=== PATIENT | female | born 1985 | race Caucasian/White ===

== ENCOUNTER 2017-08-11 17:01 | Emergency (ER) | payer MEDICAID ==
[~2017-08-11] VITALS: Ht 170.2 cm; Wt 53.6 kg
[2017-08-11 17:07] VITALS: BP 119/83
[2017-08-11] MEDS ORDERED: KETOROLAC 30 MG/1 ML IM ONE (18:00)
[2017-08-11] MEDS ORDERED: KETOROLAC 30 MG/1 ML ONE ×2 (18:09)
== END 2017-08-11 18:40 | disposition home or self-care (01) ==
LOC: ED 18:00
DX: S30.0XXA Contusion of lower back and pelvis, initial encounter (principal); X58.XXXA Exposure to other specified factors, initial encounter; Y93.89 Activity, other specified; Y92.89 Other specified places as the place of occurrence of the external cause; Y99.8 Other external cause status
CPT/HCPCS: 72110; 96372; 99284; J1885